=== PATIENT | female | born 1985 | race Caucasian/White ===

== ENCOUNTER 2017-04-10 08:05 | Inpatient (IN) | payer BC ==
[2017-04-10] MEDS ORDERED: TERBUTALINE SULFATE 1 MG/ML VIAL IV PRN (09:52)
[2017-04-10] MEDS ORDERED: OXYTOCIN/RINGERS LACTATE 1,000 ML IV PRN (09:52)
[2017-04-10] MEDS ORDERED: OLIVE OIL 118 ML BTL MISC PRN (09:52)
[2017-04-10] MEDS ORDERED: LR 1,000 ML IV PRN (09:52)
[2017-04-10] MEDS ORDERED: EPSOM SALT 454 GM TP PRN (09:52)
[2017-04-10] MEDS ORDERED: OXYTOCIN 10 UNIT/ML VIAL ONE (12:05)
[2017-04-10] MEDS ORDERED: LIDOCAINE 1% 300 MG/30 ML SDV ONE (12:05)
[2017-04-10] MEDS: IBUPROFEN 600 MG TAB PO PRN ×2 (14:54→21:02)
--- NOTE | 2017-04-10 16:44 | PDGENHP ---
History and Physical History and Physical: LABOR ADMISSION HISTORY AND PHYSICAL EXAM DATE OF ADMISSION: 04/10/2017 HISTORY OF PRESENT ILLNESS: 31 yo WF presented @ 40.0 weeks in precipitous labor. Reports painful contractions since 330AM, SROM @5AM. Uncomplicated course. MEDICAL HISTORY: H/o PP depression with previous ; h/o cervical dysplasia (HSIL, +HR HPV) CURRENT MEDICATIONS: PNV SURGICAL HISTORY: Ear tubes (as a child) ALLERGIES: NKDA SOCIAL HISTORY: , denies smoking history, ETOH, THC, or illicit drug use. FAMILY MEDICAL HISTORY: Non-contributory. OBSTETRICAL/GYNECOLOGIC HISTORY: HSIL/+HPV16 (09/02/16 pap) REVIEW OF SYSTEMS: GENERAL: Denies generalized faintness or fatigue HENT: Denies headache, vision changes, sore throat PULM: Denies cough, shortness of breath CV: Denies palpitations, chest pain GI: Denies nausea, vomiting, diarrhea, constipation : Significant pelvic pain, contractions, reports loss of fluid. MSK: Denies significant swelling in extremities SKIN: Denies rash, or new lesion NEURO: Denies numbness, weakness, tingling PSYCH: Denies significant mood changes PHYSICAL EXAM: VITALS: VSS, reviewed GENERAL APPEARANCE: Alert & oriented x 3 HENT: Normocephalic, atraumatic, supple HEART: RRR, no M/R/G LUNGS: CTAB, no wheezes, no rhonchi ABDOMEN: Gravid, non-distended, non-tender PELVIC EXAM: head at perineum up initial exam. ASSESSMENT: Cat I tracing when place on monitor LABS: A+ / Antibody Screen Neg / Rubella Immune / GBS Neg (03/16/17) / HBsAg Neg / HIV Neg / cfDNA Neg ASSESSMENT/PLAN: 31 yo WF admitted for precipitous labor. Expectant labor management. Will need PP colpo for dysplasia diagnosed during .
--- NOTE | 2017-04-10 17:01 | OBDEL ---
Info Type: Vaginal Presentation at Delivery: Vertex L&D Analgesia/Anesthesia Type: None, Local GBS+: No Intrapartum Medications: Generic Name Dose Route Start Last Admin Trade Name Matias PRN Reason Stop Dose Admin Ibuprofen 600 mg 04/10/17 09:52 04/10/17 14:54 Motrin PO 10/07/17 09:51 600 mg Q6HRS PRN Administration post , inflammation - Hospital Course Intrapartum: 04/10/17 16:54 Patient presented in wheelchair in labor. Within 10 minutes of arrival she delivered a viable female . At 808AM spontaneous delivery of infant occurred on bed. YUNI delivery of infant's head followed by gentle and uncomplicated delivery of anterior and then posterior shoulder followed by body. Apgars 8 @ 1 min, 9 @ 5 min. Wt: 3300g. Placenta delivered intact and complete within 10 minutes of infant with the assistance of gentle traction. A small 1st degree laceration was repaired with 2-0 vicryl. No other lacerations noted on exam of vagina and cervix. Fundus was fir after 10 U of IM pitocin. EBL 200mL. Indications for Delivery: Spontaneous Labor Vaginal Delivery - Delivery Provider Delivery Physician/CNM: Zachary Katz - Labor and Delivery Onset of Contractions Date: 04/10/17 Onset of Contractions Time: 05:00 Amniotic Fluid Color: Clear Laceration: 1st Degree Repair: 2-0, Vicryl Vaginal Sponge Count Correct: Yes Vaginal Needle Count Correct: Yes EBL: 200 Delivery Events: None Delivery Comment: Patient presented in wheelchair in labor. Within 10 minutes of arrival she delivered a viable female . At 808AM spontaneous delivery of occurred on bed. YUNI delivery of infant's head followed by gentle and uncomplicated delivery of anterior and then posterior shoulder followed by body. Apgars 8 @ 1 min, 9 @ 5 min. Wt: 3300g. Placenta delivered intact and complete within 10 minutes of with the assistance of gentle traction. A small 1st degree laceration was repaired with 2-0 vicryl. No other lacerations noted on exam of vagina and cervix. Fundus was fir after 10 U of IM pitocin. EBL 200mL. - Medications Labor Augmentation/Induction Methods Used: None Data Farias Delivery Date: 04/10/17 Delivery Time: 08:08 ARAVIND: 04/10/17 Gestational Age: 40 week(s) and 0 day(s) Sex of : Female Weight (gm): 3300 g Score (1 Min): 8 Score (5 Min): 9 ICD10 Worksheet Patient Problems: Problems Problem Status Onset Spontaneous vertex delivery Acute labor and delivery Acute - ICD10 Problem Qualifiers (1) Spontaneous vertex delivery
[2017-04-10 18:30] VITALS: O2SAT 94
[2017-04-11] MEDS: IBUPROFEN 600 MG TAB PO PRN ×2 (02:49→09:07)
[2017-04-11 10:01] VITALS: BP 107/75; PULSE 88; RESP 16; TEMP 98
--- NOTE | 2017-04-11 10:41 | OBPP ---
Progress Note Assessment/Plan: Assessment: s/p precipitous PPD # 1 - pt is stable Plan: Continue routine pp care Pt wants to go home today, instructions reviewed with pt Rx given for Hurt and Motrin Pelvic rest RTC in 4 and 6 weeks for pp visit 04/11/17 10:33 Subjective/ Course: 04/11/17 10:34 Pt seen and examined. Doing well with no complaints. Notes some discomfort near perineal lac this am. Otherwise, minimal cramping. Mod lochia. Alf regular diet , voiding without difficulty, passing flatus. No BM yet. BF without difficulty. Wants to go home today. Objective: Temp Pulse Resp BP Pulse Ox 36.7 C 88 16 107/75 94 04/11/17 08:15 04/11/17 08:15 04/11/17 08:15 04/11/17 08:15 04/10/17 12:30 Uterine Position/Fundal Height: Umbilicus -2 Uterine Tone: Firm Physical Exam - Physical Exam Respiratory: lungs clear, normal breath sounds Cardiac/Chest: regular rate, rhythm Abdomen: normal bowel sounds, non-tender, soft, flatus, other (Pelvic: + hematoma at introitus, near fourchette. No vulvar edema.) Extremities: non-tender Skin: normal color, warm/dry Neuro/Psych: alert, normal mood/affect, oriented x 3
--- NOTE | 2017-04-11 10:47 | OBGCSDC ---
General Delivery Information - General Info : 2 Para: 2 Abortions: 0 Type: Vaginal L&D Analgesia/Anesthesia Type: None, Local Admission Date: 04/10/17 - Hospital Course Antepartum: 04/11/17 10:46 course uncomplicated Intrapartum: 04/10/17 16:54 Patient presented in wheelchair in labor. Within 10 minutes of arrival she delivered a viable female infant. At 808AM spontaneous delivery of infant occurred on bed. YUNI delivery of infant's head followed by gentle and uncomplicated delivery of anterior and then posterior shoulder followed by body. Apgars 8 @ 1 min, 9 @ 5 min. Wt: 3300g. Placenta delivered intact and complete within 10 minutes of with the assistance of gentle traction. A small 1st degree laceration was repaired with 2-0 vicryl. No other lacerations noted on exam of vagina and cervix. Fundus was fir after 10 U of IM pitocin. EBL 200mL. : 04/11/17 10:34 Pt seen and examined. Doing well with no complaints. Notes some discomfort near perineal lac this am. Otherwise, minimal cramping. Mod lochia. Alf regular diet , voiding without difficulty, passing flatus. No BM yet. BF without difficulty. Wants to go home today. Vaginal - Delivery Provider Delivery Physician/CNM: Zachary Katz - Diagnosis Amniotic Fluid Color: Clear Laceration: 1st Degree Repair: 2-0, Vicryl Delivery Events: None - Delivery EBL: 200 Data Farias Delivery Date: 04/10/17 Delivery Time: 08:08 ARAVIND: 04/10/17 Gestational Age: 40 week(s) and 1 day(s) Sex of : Female [place] Weight (gm): 3300 g Score (1 Min): 8 Score (5 Min): 9 Discharge Information - Discharge Information Prescriptions: Ibuprofen [Motrin (*)] 600 mg PO Q6HRS PRN #30 tab PRN Reason: post , inflammation Condition: Good Instruction/Follow Up: Four Weeks, Six Weeks
== END 2017-04-11 11:45 | disposition home or self-care (01) | DRG 775 ==
LOC: FLD 08:05 → FOB 11:44
PROVIDERS: ADMIT Obstetrics & Gynecology Gynecology; ATTEND Obstetrics & Gynecology Gynecology
DX: O70.0 First degree perineal laceration during delivery (principal); Z37.0 Single live birth; Z3A.40 40 weeks gestation of pregnancy

== ENCOUNTER → 2018-07-09 | Outpatient (CLI) | payer BC | LOC: FIMAGING 14:05 | PROVIDERS: ATTEND Psychiatry & Neurology Neurology | DX: G37.9 Demyelinating disease of central nervous system, unspecified (principal) ==